=== PATIENT | male | born 1950 | race Caucasian/White ===

== ENCOUNTER 2018-09-02 08:20 | Emergency (ER) | payer OTHER ==
[~2018-09-02] VITALS: Ht 172.7 cm; Wt 85.3 kg
[2018-09-02] MEDS ORDERED: CLOZAPINE200 MG PO (08:47)
[2018-09-02] MEDS ORDERED: GLIPIZIDE5 MG PO (08:47)
[2018-09-02] MEDS ORDERED: METFORMIN HYD1000 MG PO (08:48)
[2018-09-02 08:51] LABS: HEMATOCRIT 32.2 % (42.0-52.0); HEMOGLOBIN 10.7 g/dl (14.0-18.0); MEAN CELL VOLUME 92.3 fl (80.0-94.0); MEAN CORPUSCULAR HGB 30.7 pg (27.0-31.0); MEAN CORPUSCULAR HGB CONC 33.2 g/dl (33.0-37.0); PLATELET COUNT AUTOMATED 194 10*3/uL (130-400); RED BLOOD COUNT 3.49 10*6/uL (4.50-5.90); RED CELL DISTRI WIDTH 13.9 % (0-14.5); WHITE BLOOD COUNT 16.1 10*3/uL (4.8-10.8)
[2018-09-02 09:00] LABS: ACT PARTIAL THROMBO TIME 22.5 SECONDS (20.8-31.5)
[2018-09-02 09:07] LABS: ALBUMIN 3.5 gm/dl (3.1-4.5); ALKALINE PHOSPHATASE 62 U/L (45-117); BUN 13 mg/dl (7-24); CHLORIDE 104 mmol/L (98-107); CREATININE 1.14 mg/dL (0.70-1.30); POTASSIUM 3.9 mmol/L (3.5-5.1); SGOT/AST 21 IU/L (3-35); SGPT/ALT 21 U/L (12-78); SODIUM 140 mmol/L (136-145); TOTAL PROTEIN 6.5 gm/dL (6.4-8.2)
[2018-09-02 09:15] LABS: PLATELET SUFFICIENCY NORMAL (NORMAL); TOTAL CELLS COUNTED 100 #CELLS
== END 2018-09-02 10:36 | disposition home or self-care (01) ==
LOC: ED 08:20
PROVIDERS: Emergency Medicine
DX: S02.2XXA Fracture of nasal bones, initial encounter for closed fracture (principal); S16.1XXA Strain of muscle, fascia and tendon at neck level, initial encounter; S00.511A Abrasion of lip, initial encounter; S00.81XA Abrasion of other part of head, initial encounter; I10 Essential (primary) hypertension; E11.9 Type 2 diabetes mellitus without complications; E78.5 Hyperlipidemia, unspecified; R60.0 Localized edema; E04.1 Nontoxic single thyroid nodule; D72.829 Elevated white blood cell count, unspecified; E11.65 Type 2 diabetes mellitus with hyperglycemia; K02.9 Dental caries, unspecified; Z88.8 Allergy status to other drugs, medicaments and biological substances; W00.0XXA Fall on same level due to ice and snow, initial encounter; Y93.89 Activity, other specified; Y92.89 Other specified places as the place of occurrence of the external cause; Y99.8 Other external cause status